=== PATIENT | female | born 1950 | race Two or more races ===

== ENCOUNTER 2018-10-21 12:47 | Outpatient (CLI) | payer OTHER ==
[~2018-10-21 12:47] MED LIST: ASA81 MG PO; ENALAPRIL MALE2.5 MG; INDOMETHACIN50 MG PO; LIPITOR40 MG PO; METFORMIN HCL500 MG PO; SIMVASTATIN10 MG; TARKA 4/2401 BOTTLE PO
== END 2018-10-21 12:54 | disposition home or self-care (01) ==
LOC: EKG 12:47
DX: I10 Essential (primary) hypertension (principal)

== ENCOUNTER → 2019-01-22 | Outpatient (CLI) | payer OTHER | END | disposition home or self-care (01) | LOC: RAD 10:49 → MAMO-SONO 01-24 09:15 | DX: M19.90 Unspecified osteoarthritis, unspecified site (principal) ==

== ENCOUNTER 2019-01-24 08:34 | Outpatient (CLI) | payer OTHER | END 2019-01-24 08:52 | disposition home or self-care (01) | LOC: SONOGRAMA 08:34 | DX: M19.90 Unspecified osteoarthritis, unspecified site (principal) ==

== ENCOUNTER 2019-09-11 08:31 | Outpatient (CLI) | payer OTHER | END 2019-09-11 08:32 | disposition home or self-care (01) | LOC: SONOGRAMA 08:31 → RX STUDY 10:15 | DX: N84.0 Polyp of corpus uteri (principal); N95.0 Postmenopausal bleeding ==

== ENCOUNTER 2020-11-17 11:16 | Outpatient (CLI) | payer OTHER | END 2020-11-17 13:24 | disposition home or self-care (01) | LOC: RAD 11:16 → MAMO-SONO 11:16 → RAD 13:24 → MAMO-SONO 11-24 10:15 | PROVIDERS: ATTEND Internal Medicine Cardiovascular Disease | DX: S02.600A Fracture of unspecified part of body of mandible, unspecified side, initial encounter for closed fracture (principal) ==

== ENCOUNTER 2020-12-01 07:45 | Outpatient (CLI) | payer OTHER | END 2020-12-01 07:51 | disposition home or self-care (01) | LOC: SONOGRAMA 07:45 → MAMO-SONO 15:45 | PROVIDERS: ATTEND Internal Medicine Cardiovascular Disease | DX: M12.871 Other specific arthropathies, not elsewhere classified, right ankle and foot (principal) ==

== ENCOUNTER 2021-01-11 13:00 | Outpatient (CLI) | payer OTHER | END 2021-01-11 14:34 | disposition home or self-care (01) | LOC: MAMO-SONO 13:00 | PROVIDERS: ATTEND Obstetrics & Gynecology Maternal & Fetal Medicine | DX: Z12.11 Encounter for screening for malignant neoplasm of colon (principal); Z87.898 Personal history of other specified conditions; N60.11 Diffuse cystic mastopathy of right breast; N64.4 Mastodynia; N63.0 Unspecified lump in unspecified breast ==

== ENCOUNTER 2021-01-11 15:13 | Outpatient (CLI) | payer OTHER | END 2021-01-11 15:15 | disposition home or self-care (01) | LOC: NUCLEAR 15:13 | PROVIDERS: ATTEND Obstetrics & Gynecology Maternal & Fetal Medicine | DX: M81.0 Age-related osteoporosis without current pathological fracture (principal) ==

== ENCOUNTER 2022-01-25 11:03 | Outpatient (CLI) | payer OTHER | END 2022-01-25 11:07 | disposition home or self-care (01) | LOC: MRI 11:03 | PROVIDERS: ATTEND Physical Medicine & Rehabilitation Pain Medicine | DX: M25.551 Pain in right hip (principal) ==

== ENCOUNTER 2022-01-26 07:17 | Outpatient (CLI) | payer OTHER | END 2022-01-26 07:27 | disposition home or self-care (01) | LOC: MRI 07:17 | PROVIDERS: ATTEND Physical Medicine & Rehabilitation Pain Medicine | DX: M25.551 Pain in right hip (principal) | CPT/HCPCS: 73718 ==

== ENCOUNTER 2022-02-22 07:14 | Outpatient (CLI) | payer OTHER | END 2022-02-22 07:31 | disposition home or self-care (01) | LOC: MAMO-SONO 07:14 | PROVIDERS: ATTEND Obstetrics & Gynecology Maternal & Fetal Medicine | DX: Z12.31 Encounter for screening mammogram for malignant neoplasm of breast (principal); N63.0 Unspecified lump in unspecified breast; N64.4 Mastodynia; N60.11 Diffuse cystic mastopathy of right breast ==

== ENCOUNTER → 2023-04-09 | Outpatient (CLI) | payer OTHER | END | disposition home or self-care (01) | LOC: MAMO-SONO 11:07 | PROVIDERS: ATTEND Obstetrics & Gynecology Maternal & Fetal Medicine | DX: Z12.31 Encounter for screening mammogram for malignant neoplasm of breast (principal); N63.0 Unspecified lump in unspecified breast; N64.4 Mastodynia; N60.11 Diffuse cystic mastopathy of right breast ==

== ENCOUNTER 2024-03-31 09:58 | Outpatient (CLI) | payer OTHER | END 2024-03-31 10:02 | disposition home or self-care (01) | LOC: RAD 09:58 | PROVIDERS: ATTEND Obstetrics & Gynecology Gynecology | DX: R07.89 Other chest pain (principal) ==

== ENCOUNTER 2024-04-15 04:40 | Day surgery (SDC) | payer OTHER ==
[2024-04-14 12:38] LABS: INR 0.96; PARTIAL THROMBOPLASTIN TIME 27.2 SECONDS (22.0-34.0); PROTHROMBIN TIME 10.1 SECONDS (9.0-11.5)
[~2024-04-15 04:40] MED LIST changes: +CEFAZOLIN SODIUM 1,000 MG VIAL IV SCH
[2024-04-15] MEDS ORDERED: LIDOCAINE HCL 1%/EPINEPHRINE 20ML VIAL IJ ONE (08:45)
[2024-04-15] MEDS ORDERED: CHLORHEXIDINE GLUCONATE 120 ML BOTTLE TOP ONE (08:45)
[2024-04-15] MEDS ORDERED: CEFAZOLIN SODIUM 1,000 MG VIAL IV SCH (08:45)
[2024-04-15] MEDS ORDERED: GENTAMICIN SULFATE 40 MG/ML VIAL IR ONE (08:45)
[2024-04-15] MEDS ORDERED: MACROBID 100 M100 MG PO (09:31)
[2024-04-15] MEDS ORDERED: TRAM1TAB98 PO (09:32)
== END 2024-04-15 12:40 | disposition home or self-care (01) ==
LOC: CIR.AMB 04:40
PROVIDERS: ATTEND Obstetrics & Gynecology Gynecology
DX: D26.0 Other benign neoplasm of cervix uteri (principal); N81.3 Complete uterovaginal prolapse; N81.82 Incompetence or weakening of pubocervical tissue; N81.83 Incompetence or weakening of rectovaginal tissue; R39.15 Urgency of urination

== ENCOUNTER 2024-07-01 10:53 | Outpatient (CLI) | payer OTHER ==
[~2024-07-01 10:53] MED LIST changes: -CEFAZOLIN SODIUM 1,000 MG VIAL IV SCH; +MACROBID 100 M100 MG PO; +TRAM1TAB98 PO
== END 2024-07-01 10:58 | disposition home or self-care (01) ==
LOC: RAD 10:53
PROVIDERS: ATTEND Internal Medicine Cardiovascular Disease
DX: J44.9 Chronic obstructive pulmonary disease, unspecified (principal)

== ENCOUNTER 2024-12-11 09:16 | Outpatient (CLI) | payer OTHER | END 2024-12-11 09:21 | disposition home or self-care (01) | LOC: MAMO-SONO 09:16 | PROVIDERS: ATTEND Obstetrics & Gynecology Maternal & Fetal Medicine | DX: N63.0 Unspecified lump in unspecified breast (principal); N64.4 Mastodynia; Z12.31 Encounter for screening mammogram for malignant neoplasm of breast; N60.11 Diffuse cystic mastopathy of right breast ==

== ENCOUNTER 2025-08-03 09:16 | Outpatient (CLI) | payer OTHER | END 2025-08-03 09:22 | disposition home or self-care (01) | LOC: SONOGRAMA 09:16 | PROVIDERS: ATTEND Internal Medicine Cardiovascular Disease | DX: M19.90 Unspecified osteoarthritis, unspecified site (principal) ==